=== PATIENT | male | born 2005 | race Hispanic/Latino ===

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

== ENCOUNTER → 2024-10-26 | Outpatient (CLI) | payer OTHER ==
--- NOTE | 2024-10-29 14:06 | HMCSR ---
APPROVED REPORT EXAM: Two-dimensional and M-mode echocardiogram with Doppler and color Doppler. 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, unspecified 2D Dimensions RVDd4.4 cmLVEF(%)63.2 (>50%)LVED Vol(simp.)133.0 mL IVSd1.0 (0.7-1.1cm)FS(%)34 %LVES Vol(simp.)56.0 mL LVDd4.6 (3.8-5.6cm)Ao Root(2D)3.1 (2.0-3.7cm)LVEF(%, simp.)58 % PWd0.9 (0.7-1.1cm)LVOT diam2.4 (1.8-2.4cm)LA ESV INDEX (BP)26.98 mL/m2 LVDs3.0 (2.5-4.0cm)IVC diam1.2 cm Deformation Strain Apical 4-18.4 % Apical 2-18.4 % Apical 3-15.7 % Global Strain-17.5 % Aortic Valve AoV Vmax1.2 m/Esteban Peak GR5.7 mmHgLVOT Vmax0.8 m/s AoV VTI0.3 mAo Mean GR3.0 mmHgLVOT VTI0.18 m ESTHELA (VMAX)3.1 cm2AVA (VTI) 3.1 cm2 Mitral Valve MV E Tjdi974.5 cm/sDECEL Qfcy959 msMR RVD503 cm2 MV A Vmax61.9 cm/sP 1/2 T60 ms E/A ratio1.8MVA (PHT)3.6 cm2 MR Max PG111 mmHgMR Mean PG78 mmHg TDI E/E' Medial8.5E/E' Lateral5.5 Pulmonary Valve PV Vmax1.5 m/sPV VTI0.34 mPV Mean GR5 mmHg PV Peak GR9.0 mmHg Tricuspid Valve RAP (EST) 3 mmHg Left Ventricle The left ventricle structure and function is normal. There is normal LV segmental wall motion. There is normal left ventricular wall thickness. LVEF is 55-60%. Left ventricular filling pattern is normal for age. Right Ventricle The right ventricle is mildly to moderately dilated. The right ventricular systolic function is huy l. Atria The left atrium size is normal. The right atrium size is normal. Aortic Valve Aortic valve appears trileaflet and opens well. No aortic regurgitation is present. There is no aorti c valvular stenosis. Mitral Valve The mitral valve is mildly thickened. Mitral regurgitation is mild. There is no mitral valve stenosis . Tricuspid Valve The tricuspid valve leaflets appear normal. There is trace tricuspid regurgitation. Pulmonic Valve The pulmonic valve leaflets are thin and pliable; valve motion is normal. There is trace pulmonic charlie vular regurgitation. Great Vessels The aortic root is normal in size. The IVC is normal in size and collapses >50% with inspiration. Pericardium No pericardial effusion. Conclusion LVEF is 55-60%. Mitral regurgitation is mild. The aortic root is normal in size.
== END | disposition home or self-care (01) ==
LOC: SHCH 09:26
PROVIDERS: ATTEND Internal Medicine Cardiovascular Disease
DX: I34.0 Nonrheumatic mitral (valve) insufficiency (principal); Q24.9 Congenital malformation of heart, unspecified
CPT/HCPCS: 93306; 93356